=== PATIENT | male | born 1980 | race Two or more races ===

== ENCOUNTER 2017-07-20 13:06 | Emergency (ER) | payer OTHER ==
[~2017-07-20] VITALS: Ht 170.2 cm; Wt 120.8 kg
[2017-07-20 15:55] VITALS: BP 139/80
== END 2017-07-20 15:55 | disposition home or self-care (01) ==
LOC: ED 13:06
DX: L05.01 Pilonidal cyst with abscess (principal); E11.9 Type 2 diabetes mellitus without complications
CPT/HCPCS: J2001